=== PATIENT | female | born 1965 | race Two or more races ===

== ENCOUNTER 2023-08-11 07:11 | Day surgery (SDC) | payer OTHER, MEDICAID ==
[~2023-08-11] VITALS: Ht 157.5 cm; Wt 91.6 kg
[2023-08-11] VITALS (8 sets, daily range): BP systolic 99–107; BP diastolic 63–74; PULSE 83–94; RESP 12–19; O2SAT 95–99
[~2023-08-11 07:11] MED LIST: ALB5IS NEB; ALBU108A5 IN; ASPI-498 OR; ATOR20TA PO; BUME2TAB5 PO; DEXT1SYP9 PO; FLUT1AER3 IN; FLUT50SP; GLIP5TAB12 PO; GLUC-244 VI; HYDR-4798 PO; LIRA18IN2 SUBCUT; MAGN400T40 PO; METF750T54 PO; METO2.5T PO; OMEP20TA PO; ONDA-155 PO; POTA-220 PO; TENO1TAB PO; VERA180C2 PO
[2023-08-11] MEDS ORDERED: VERAPAMIL 2.5MG/ML INJ 2ML VIAL IV ONE (08:29)
[2023-08-11] MEDS ORDERED: HEPARIN SODIUM (PORCINE) 5000 UNITS/ML 1ML VIAL ONE (08:29)
[2023-08-11] MEDS ORDERED: ANGIOMAX 250 MG VIAL IV ONE (08:29)
[2023-08-11] MEDS ORDERED: fentaNYL CITRATE 100 MCG/2 ML VL ONE (08:30)
[2023-08-11] MEDS ORDERED: MIDAZOLAM HCL 2MG/2ML 2ml VIAL (1mg/ml) ONE (08:31)
[2023-08-11] MEDS ORDERED: SODIUM CHL 0.9% 0 ML ONE (08:31)
== END 2023-08-11 11:00 | disposition home or self-care (01) ==
LOC: CATH 07:11
PROVIDERS: ATTEND Internal Medicine Cardiovascular Disease
DX: I25.10 Atherosclerotic heart disease of native coronary artery without angina pectoris (principal); E78.5 Hyperlipidemia, unspecified; I12.9 Hypertensive chronic kidney disease with stage 1 through stage 4 chronic kidney disease, or unspecified chronic kidney disease; E11.22 Type 2 diabetes mellitus with diabetic chronic kidney disease; E66.01 Morbid (severe) obesity due to excess calories; Z79.899 Other long term (current) drug therapy; N18.9 Chronic kidney disease, unspecified; Z98.890 Other specified postprocedural states; Z79.84 Long term (current) use of oral hypoglycemic drugs
CPT/HCPCS: 93458; C1725; C1894; J1644; J2250; J3010; 99152